=== PATIENT | male | born 1985 | race Caucasian/White ===

== ENCOUNTER 2019-03-20 22:41 | Emergency (ER) | payer OTHER ==
[~2019-03-20] VITALS: Ht 195.6 cm; Wt 113.4 kg
--- NOTE | 2019-03-20 22:45 | NUR ---
PT BIBFRIEND C/O SOB X2 WEEKS, WORSE TODAY. PT HAS HX OF ASTHMA, STATES "I'VE NEVER HAD IT THIS BAD BEFORE" PT APPEARS SOB AND TACHYPNIC ON ARRIVAL. O2 SAT 88% ON ARRIVAL, PLACED ON 2L NC. PT DENIES CP, DIZZINESS, NAUSEA/VOMITTING. PT AAOX4. VITAL SIGNS STABLE. PLACED ON CONTINOUS GETTER WELDER AND PULSE OX, WILL CONTINUE TO MONITOR
[2019-03-20] MEDS ORDERED: IV NS 0.9% 1,000 ML IV ONE (22:46)
[2019-03-20] MEDS ORDERED: Magnesium 1GM/D5W 100ML PREMIX 200 ML IV ONE ×2 (22:46→22:48)
[2019-03-20] MEDS ORDERED: Magnesium 1GM/D5W 100ML PREMIX 100 ML IV ONE ×2 (22:48→22:49)
[2019-03-20] MEDS ORDERED: methylPREDNISolone SOD SUCC 125 MG/2ML VIAL ONE (22:48)
[2019-03-20] MEDS ORDERED: ALBUTEROL FS 2.5 MG/3 ML VIAL.NEB ONE (22:54)
[2019-03-20] MEDS ORDERED: IPRATROPIUM NEB FS 0.5 MG/2.5 ML AMPUL.NEB ONE (22:54)
--- NOTE | 2019-03-20 22:56 | NUR ---
RADIOLOGY AT BEDSIDE FOR CXR
--- NOTE | 2019-03-20 22:58 | NUR ---
RT AT BEDSIDE FOR BREATHING TREATMENT
[2019-03-20] MEDS ORDERED: ALBUTEROL FS 2.5 MG/3 ML VIAL.NEB CONTNEB ONE (23:00)
[2019-03-20] MEDS ORDERED: methylPREDNISolone SOD SUCC 125 MG/2ML VIAL IV ONE (23:00)
[2019-03-20] MEDS ORDERED: IPRATROPIUM NEB FS 0.5 MG/2.5 ML AMPUL.NEB NEB ONE (23:00)
--- NOTE | 2019-03-21 00:23 | NUR ---
Patient discharged to home in stable condition. Written and verbal after care instructions given. Patient verbalizes understanding of instruction.IV removed. Catheter intact and site benign. Pressure and 4x4 applied to site. No bleeding noted.Pt ambulatory with a steady gait
[2019-03-21 00:24] VITALS: BP 118/73
== END 2019-03-21 00:26 | disposition home or self-care (01) ==
LOC: ER 22:43
DX: J45.901 Unspecified asthma with (acute) exacerbation (principal); F03.90 Unspecified dementia, unspecified severity, without behavioral disturbance, psychotic disturbance, mood disturbance, and anxiety; R00.0 Tachycardia, unspecified
CPT/HCPCS: 71045; 94644; 96365; 96375; 99285; J2930; J3475 ×2; J7030